=== PATIENT | male | born 1950 | race Caucasian/White ===

== ENCOUNTER 2017-06-24 07:59 | Day surgery (SDC) | payer OTHER ==
[2017-06-19 14:47] VITALS: BMI 25.8
[2017-06-24] MEDS ORDERED: PROPOFOL 20 ML ONE ×2 (08:12)
[2017-06-24] MEDS ORDERED: ATROPINE SO4 0.4 MG/1 ML VIAL ONE (08:45)
[2017-06-24 11:18] VITALS: BP 134/82; PULSE 67; TEMP 97.9
== END 2017-06-24 10:05 | disposition home or self-care (01) ==
LOC: FASU-ENDO 07:59
PROVIDERS: ATTEND Internal Medicine Gastroenterology
PROC: 0DJD8ZZ Inspection of Lower Intestinal Tract, Via Natural or Artificial Opening Endoscopic (ICD-10-PCS; principal; 2017-06-24 08:47)
DX: Z86.010 Personal history of colon polyps (principal); K57.30 Diverticulosis of large intestine without perforation or abscess without bleeding